=== PATIENT | male | born 2000 | race Caucasian/White ===

== ENCOUNTER 2022-06-29 13:22 | Emergency (ER) | payer OTHER, SELFPAY ==
[2022-06-29 14:23] VITALS: BP 126/82; PULSE 99; RESP 16; TEMP 36.8; O2SAT 99; BMI 35.3
--- NOTE | 2022-06-29 14:29 | CRLHL7_ITS ---
For Patients: As a result of the Cures Act, medical imaging exams and procedure reports are released immediately into your electronic medical record. You may view this report before your referring provider. If you have questions, please contact your health care provider. Indication: Injury and pain. Technique: Left knee 2 views Comparison: None Findings: Bones: Alignment is normal. No fractures or bone lesions. Joint spaces: No joint effusion. Joint spaces are well maintained. No degenerative changes. Soft tissues: Unremarkable. Impression: No sign of acute injury. Dictated by Joe Perez MD @ 06/29/2022 3:25:16 PM (Electronically Signed)
[2022-06-29 16:22] VITALS: BP 130/74; PULSE 91; RESP 20
--- NOTE | 2022-06-29 16:23 | ED_ITS ---
HPI - Extremity Injury (Lower) General Time Seen by Provider: 16:23 Date Seen: 06/29/22 Chief Complaint: Extremity Pain/Injury, Lower Stated Complaint: l. knee pain Time Seen by Provider: 06/29/22 13:59 Source: patient and RN notes reviewed Mode of arrival: ambulatory Limitations: no limitations History of Present Illness HPI Narrative: Patient is here with left knee pain and swelling. States he can barely place any weight on it, knee feels unstable. 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 His leg planted in a snowbank and became immobilized, he fell with rest of his body with the leg fixed in the snowbank. He feels like he hyperextended his knee. He has been icing. Nothing else is injured. No prior injury to this knee on questioning. Related Data Home Medications Medication Instructions Recorded Confirmed No Known Home Medications 06/29/22 06/29/22 Allergies Allergy/AdvReac Type Severity Reaction Status Date / Time No Known Drug Allergies Allergy Verified 06/29/22 14:23 Review of Systems Narrative: As per HPI PFSH PFSH Social History Smoking Status: Current every day smoker Do you use any of these nicotine containing products: Vaping Products Second hand tobacco smoke exposure: No How often do you have a drink containing alcohol: monthly or less How many standard drinks containing alcohol do you have on a typical day: 1 or 2 How often do you have six or more drinks on one occasion: Never AUDIT-C Alcohol total score: 1 Non-prescribed substance use: denies use Exam Const: Vital Signs, click to edit/add: Vital Signs - 24 hr 06/29/22 14:23 06/29/22 16:22 Temperature 98.2 F Pulse Rate [Pulse Oximeter] 99 91 Respiratory Rate 16 20 Blood Pressure [Ri ght Upper Arm] 126/82 130/74 Pulse Oximetry 99 Oxygen Delivery Me thod Room Air Room Air Documenting provider has reviewed patient's vital signs: yes Common normals: no apparent distress, average body habitus, oriented x3, no limitations, healthy appearing, alert and well nourished Other: Has obvious swollen knee joint, palpable knee effusion. Can straight leg raise this leg. No specific joint line tenderness medially or laterally. Really do not feel any fluid in the popliteal fossa. Difficult to examine his leg at this time due to the pain in the swelling. With the effusion, do know that there is likely ligamentous or cartilaginous injury. Neuro: Common normals: oriented x3 Sensorium/orientation: alert Course Course Hospital Course: Plain films do not show any fracture, reviewed this with the patient. Reviewed with him that he most definitely has an internal derangement of this knee. Will place him in a knee immobilizer and crutches for nonweightbearing. He is to ice elevate to help diminish swelling. Vital Signs Vital signs: Initial Vital Signs Temperature 98.2 F 06/29/22 14:23 Temperature Source Oral 06/29/22 14:23 Pulse Rate 99 06/29/22 14:23 Pulse Rhythm 06/29/22 14:23 Pulse Strength 3+ Normal 06/29/22 14:23 Respiratory Rate 16 06/29/22 14:23 Blood Pressure 126/82 06/29/22 14:23 Blood Pressure Mean 96 06/29/22 14:23 Blood Pressure Position Sitting 06/29/22 14:23 Pulse Oximetry 99 06/29/22 14:23 Oxygen Delivery Method 06/29/22 14:23 Vital Signs Temperature 98.2 F 06/29/22 14:23 Pulse Rate 99 06/29/22 14:23 Respiratory Rate 16 06/29/22 14:23 Blood Pressure 126/82 06/29/22 14:23 Pulse Oximetry 99 06/29/22 14:23 Oxygen Delivery Method 06/29/22 14:23 Temperature 98.2 F 06/29/22 14:23 Pulse Rate 91 06/29/22 16:22 Respiratory Rate 20 06/29/22 16:22 Blood Pressure 130/74 06/29/22 16:22 Pulse Oximetry 99 06/29/22 14:23 Oxygen Delivery Method 06/29/22 16:22 MDM - Extremity Injury (Lower) Imaging Data X-ray left knee: Attestation: I have reviewed the pertinent imaging results. My impression: I see no acute pathology on my preliminary review. Radiologist's impression: Patient: DELILAH SOSA Facility:?[facility] Patient ID:?[id number] Site Patient ID:?[id number]. Site :?2000 Study:?XRay Knee Left 2 VIEW-06/29/2022 3:11:49 PM Ordering Physician:Dara Kim Final Report: Indication: Injury and pain. Technique: Left knee 2 views Comparison: None Findings: Bones: Alignment is normal. No fractures or bone lesions. Joint spaces: No joint effusion. Joint spaces are well maintained. No deg enerative changes. Soft tissues: Unremarkable. Impression: No sign of acute injury. Dictated by Joe Perez MD @ 06/29/2022 3:25:16 PM (Electronic Signature) Critical Care Time Critical Care Time Critical Care Time: No Discharge Plan Discharge Clinical Impression: Acute internal derangement of knee Patient Disposition: Home, Self-Care Condition: Stable Instructions: Knee Pain (ED) Additional Instructions: Need to use knee immobilizer and crutches for nonweightbearing on this leg and tell further advised by Orthopedics. Will write a note to that effect for work. You will need to call the orthopedic office at [phone] to get scheduled for follow-up, not sure if they are open on Thursday but certainly will be on Thursday. Ice, elevate this leg as much as able to keep swelling down. Tylenol and ibuprofen per bottle directions if needed for discomfort. Activity Level: Wear Brace and Use Crutches Prescriptions: No Action No Known Home Medications Follow Up/Referrals: Provider,Not a Local [Primary Care Provider] - Stand Alone Forms: [employer] Info Instructions
== END 2022-06-29 16:50 | disposition home or self-care (01) ==
PROVIDERS: Emergency Provider Family Medicine
DX: M23.8X2 Other internal derangements of left knee (principal); S89.82XA Other specified injuries of left lower leg, initial encounter; W00.0XXA Fall on same level due to ice and snow, initial encounter; Y93.89 Activity, other specified; Y92.9 Unspecified place or not applicable; Y99.0 Civilian activity done for income or pay
CPT/HCPCS: 73560; 99283

== ENCOUNTER 2022-07-09 10:14 | Outpatient (CLI) | payer OTHER, SELFPAY ==
--- NOTE | 2022-07-09 10:15 | MR_ITS ---
[facility] [address] [facility] [address] Phone:?[phone] Fax:?[phone] Referring Physician Information: Linda English [address] [facility] [address] Phone:?[phone] Fax:?[phone] Patient:Katrin Glasgow D.O.B:?2000 Sex:?Male Phone:?[phone] [facility] MRN:?[id number] Exam Date:?07/09/2022 ? EXAM: MRI of the LEFT KNEE, without contrast CLINICAL HISTORY: Left knee pain. Evaluate anterior cruciate ligament tear. COMPARISONS: None available. TECHNICAL: MR sequences of the left knee: sagittals: PD, PDFS coronals: PD, STIR axials: PD, T2 FS CONTRAST: None SEDATION: None FINDINGS: Bones: There are bone marrow contusions of the anterior and lateral portion of the proximal tibia, anterior and medial portion of the proximal tibia, and posterior portion of the medial tibial plateau. There is mildly impacted nondisplaced intra-articular fracture of the anterior portion of the medial femoral condyle best seen on sagittal series 6 images 9 through 14 Patellofemoral joint: Cartilage: Intact. Retinacula: The medial and lateral retinacula are intact. Fat pads: The infrapatellar, quadriceps, and prefemoral fat pads are unremarkable. Knee joint: Effusion: Small left knee joint effusion. Popliteal cyst: None. Intra-articular bodies: None. Posteromedial corner: There is moderate distal gracilis paratendinitis/tenosynovitis best seen on axial series 4 images 5 through 20. Medial compartment: Medial meniscus: Intact. Cartilage: Intact. Lateral compartment: Lateral meniscus: Intact. Cartilage: Intact. Ligaments: Anterior cruciate ligament: Intact. Posterior cruciate ligament: Intact. Medial collateral ligament: Intact. Posterior oblique ligament: Intact. Fibular collateral ligament: Intact. Posterolateral corner: The distal biceps femoris tendon, iliotibial band, popliteus tendon, popliteus muscle, popliteofibular ligament, and arcuate ligament are intact. Extensor mechanism: Patellar tendon: Intact. Quadriceps tendon: Intact. IMPRESSION: 1. Mildly impacted nondisplaced intra-articular fracture of the anterior portion of the medial femoral condyle and bone marrow contusions of the anterior portions of the proximal tibia likely reflect sequelae of hyperextension injury; correlate with clinical history/mechanism of injury. There is also bone marrow contusion of the posterior portion of the medial tibial plateau. 2. Moderate distal gracilis paratendinitis/tenosynovitis. 3. Small left knee joint effusion. 4. No ligamentous injury, meniscal tear, or chondral loss of the left knee. RCB Electronically signed on 07/09/2022 4:17:00 PM by Angel Cueva M.D.
== END 2022-07-09 10:15 | disposition home or self-care (01) ==
PROVIDERS: Visit Provider Physician Assistant Surgical
DX: M25.562 Pain in left knee (principal); S82.135A Nondisplaced fracture of medial condyle of left tibia, initial encounter for closed fracture; M65.88 Other synovitis and tenosynovitis, other site; M25.462 Effusion, left knee
CPT/HCPCS: 73721

== ENCOUNTER 2024-08-26 09:33 | Outpatient (CLI) | payer BC, SELFPAY | END 2024-08-26 09:34 | disposition home or self-care (01) | LOC: CT 09:34 | PROVIDERS: PCP Family Medicine; Visit Provider Otolaryngology | DX: R43.0 Anosmia (principal); J34.2 Deviated nasal septum | CPT/HCPCS: 70486 ==

== ENCOUNTER 2024-10-14 09:51 | Day surgery (SDC) | payer BC, SELFPAY ==
[2024-10-14] VITALS (12 sets, daily range): BP systolic 122–137; BP diastolic 76–90; PULSE 70–115; RESP 16; TEMP 36.4–37.2; O2SAT 92–99; BMI 35.1
[2024-10-14] MEDS: LACTATED RINGERS 1000 ML 1,000 ML 100 ML IV (10:15)
[2024-10-14] MEDS: OXYMETAZOLINE 0.05% NASAL SPRAY 2 SPRAY NOSTRIL-B (10:35)
[2024-10-14] MEDS: COCAINE HCL 4 % 4 ML SOLUTION NOSTRIL-B (11:32)
[2024-10-14] MEDS: BUPIVACAINE 0.5%/EPINEPHRINE 0.9 MG (30.9 ML) INJECTION (11:43)
[2024-10-14] MEDS: AYR SALINE NASAL GEL 1 APPLIC NOSTRIL-B (11:50)
[2024-10-14] MEDS: MUPIROCIN 1 GM PACKET 1 APPLIC TOPICAL (11:57)
--- NOTE | 2024-10-14 12:26 | P.ANES_ITS ---
Anesthesia Charges Start Date/Time Anesthesia Start Date: 10/14/24 Anesthesia Start Time: 11:10 Stop Date/Time Anesthesia Stop Date: 10/14/24 Anesthesia Stop Time: 12:25 Coding CPT Codes CPT Codes: ANESTH NOSE/SINUS SURGERY - 09831 ([id number]) P2 - PATIENT W/MILD SYST DISEASE, QK - PROJ ENGINEER 2-4 CNCRNT ANES PROC, QX - MARKETING OPERATIONS ANALYST SVC W/ MD MED DIRECTION
--- NOTE | 2024-10-14 12:26 | P.ANES_ITS ---
Anesthesia Charges Start Date/Time Anesthesia Start Date: 10/14/24 Anesthesia Start Time: 11:10 Stop Date/Time Anesthesia Stop Date: 10/14/24 Anesthesia Stop Time: 12:25 Coding CPT Codes CPT Codes: ANESTH NOSE/SINUS SURGERY - 97264 ([id number]) P2 - PATIENT W/MILD SYST DISEASE, QX - MONITORING MANAGER SVC W/ MD MED DIRECTION, QK - DIRECTOR OF REHABILITATION AND WELLNESS 2-4 CNCRNT ANES PROC
--- NOTE | 2024-10-14 12:26 | W.ANESCHARGE ---
Anesthesia Charges Start Date/Time Anesthesia Start Date: 10/14/24 Anesthesia Start Time: 11:10 Stop Date/Time Anesthesia Stop Date: 10/14/24 Anesthesia Stop Time: 12:25 Coding CPT Codes CPT Codes: ANESTH NOSE/SINUS SURGERY - 18709 ([id number]) P2 - PATIENT W/MILD SYST DISEASE, QX - FINANCIAL ANALYSIS MANAGER SVC W/ MD MED DIRECTION, QK - METAL ALLOY SCIENTIST 2-4 CNCRNT ANES PROC
--- NOTE | 2024-10-14 12:26 | W.ANESCHARGE ---
Anesthesia Charges Start Date/Time Anesthesia Start Date: 10/14/24 Anesthesia Start Time: 11:10 Stop Date/Time Anesthesia Stop Date: 10/14/24 Anesthesia Stop Time: 12:25 Coding CPT Codes CPT Codes: ANESTH NOSE/SINUS SURGERY - 96530 ([id number]) P2 - PATIENT W/MILD SYST DISEASE, QK - FUNERAL PRE NEED CONSULTANT 2-4 CNCRNT ANES PROC, QX - FIELD TALENT QUALIFICATION SPECIALIST SVC W/ MD MED DIRECTION
--- NOTE | 2024-10-14 13:18 | P.ENTPROC_ITS ---
Procedure Note Date of procedure: 10/14/24 Procedure: Preoperative diagnosis is chronic pansinusitis mainly ethmoid and maxillary, deviated septum, inferior turbinate hypertrophy, allergic rhinitis, nasal obstruction Postoperative diagnosis same Procedure nasal septoplasty, bilateral inferior turbinate submucous resection partial, bilateral endoscopic complete ethmoidectomies, bilateral endoscopic maxillary antrostomies with tissue removal. Note that image guidance was used throughout the procedure as well as 0 degree endoscopy. Under general trach anesthesia patient was prepped and draped in usual fashion nose decongested and injected. A right hemitransfixion incision was made. Left anterior posterior tunnels were created. A vertical incision was made through the cartilage and a right posterior tunnel created. The posterior deflected portions of septal bone and cartilage were resected a large piece trimmed and returned to intraseptal space. The hemitransfixion was closed with 2 4-0 chromic sutures. A stab incision was made in the anterior of the right inferior turbinate a tunnel created with a [place] dissector. The alonzo bone was outfractured a conservative anterior submucous resection performed. The Coblation was used for hemostasis and to cauterize intramurally along the inferior 10%. This was repeated on the left side in identical fashion. The inferior quarter of the uncinate process on the left side was taken down exposing natural ostium to maxillary sinus this was occluded by polypoid tissue which was removed and sent to pathology. I removed a small amount of tissue from the floor of the sinus as well. And 9 mm antrostomy was created. The ethmoid bulla was then taken down and dissection carried out anterior to posterior direction removing of moderate to large amount of polypoid tissue. Both of these procedures were repeated on the right side identical fashion with identical findings. Silastic stents were secured either side the septum with 3- 0 nylon and dissolvable pack and Merocel packing was placed in each side of the nose in the middle meatal region. The patient procedure well was taken recovery satisfactory condition. Blood loss was less than 25 mL. Surgeon: Parker Stevens MD
[2024-10-14] MEDS: ACETAMINOPHEN 325 MG TABLET PO (13:29)
[2024-10-14] MEDS: IBUPROFEN 200 MG TABLET PO (13:29)
[2024-10-14] MEDS: OXYCODONE 5 MG TABLET PO (13:57)
== END 2024-10-14 14:04 | disposition home or self-care (01) ==
LOC: OR 09:53
PROVIDERS: PCP Family Medicine; Visit Provider Otolaryngology
PROC: (CPT 31231; principal; 2024-10-14 11:15)
DX: J34.2 Deviated nasal septum (principal); J34.3 Hypertrophy of nasal turbinates; J32.4 Chronic pansinusitis; J30.89 Other allergic rhinitis; J34.89 Other specified disorders of nose and nasal sinuses; J32.2 Chronic ethmoidal sinusitis; J32.0 Chronic maxillary sinusitis
CPT/HCPCS: 30520; 30140; 31255; 31267; 00160; 88305; A9270; J0330; J1100; J2250; J2405; J2704; J3010; J7120